=== PATIENT | female | born 1955 | race Caucasian/White ===

== ENCOUNTER 2016-08-24 12:40 | Outpatient (CLI) | payer OTHER ==
--- NOTE | 2016-08-24 13:10 | DIAGNOSTIC IMAGING REPORT ---
PROCEDURE: XR CHEST 2 VIEW INDICATION: U TECHNIQUE: PA and lateral views. COMPARISON: Chest 12/04/2014 FINDINGS: Lungs are clear. Heart and mediastinum are normal. Thorax is normal. Status post cervical fusion and a spinal cord stimulator. IMPRESSION: 1. Negative chest.
== END 2016-08-24 23:00 | disposition home or self-care (01) ==
LOC: RT SRH 12:40
DX: R00.0 Tachycardia, unspecified (principal)

== ENCOUNTER 2016-08-24 12:42 | Outpatient (CLI) | payer OTHER | END 2016-08-24 23:00 | disposition home or self-care (01) | LOC: XR SRH 12:42 | DX: R06.02 Shortness of breath (principal) ==